=== PATIENT | female | born 1975 | race Caucasian/White ===

== ENCOUNTER 2022-01-28 20:02 | Emergency (ER) | payer OTHER, SELFPAY ==
[2022-01-28 20:23] VITALS: BP 128/71; PULSE 71; RESP 16; TEMP 36.9; O2SAT 100; BMI 24.3
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
[2022-01-28 21:02] VITALS: BP 102/68; PULSE 73; RESP 17; O2SAT 100
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
[2022-01-28 22:18] VITALS: BP 105/64; PULSE 72; RESP 16; O2SAT 100
== END 2022-01-28 22:19 | disposition home or self-care (01) ==
PROVIDERS: Emergency Provider Emergency Medicine
DX: S16.1XXA Strain of muscle, fascia and tendon at neck level, initial encounter (principal); V43.52XA Car driver injured in collision with other type car in traffic accident, initial encounter
CPT/HCPCS: 70450; 70486; 71045; 72125; 73030; 99284

== ENCOUNTER 2022-07-23 09:51 | Outpatient (CLI) | payer BC, SELFPAY ==
--- NOTE | 2022-07-23 10:03 | MM_ITS ---
WS: [id number] BILATERAL 3D TOMOSYNTHESIS DIGITAL SCREENING MAMMOGRAPHY WITH CAD CLINICAL INFORMATION: SCREENING HISTORY: Screening mammogram. No current complaints. COMPARISON: 2017 TECHNIQUE: Bilateral CC and MLO views. FINDINGS: The breasts are composed of heterogeneous fibroglandular density tissue, which can limit the detectio n of small underlying mass lesions. Slightly spiculated asymmetric density measuring 10 mm central RI GHT breast along the posterior nipple line. This is in the outer quadrant on the tomogram images near the 9:00 position. Recommend RIGHT diagnostic mammography and ultrasound for further evaluation. LEFT breast is unremarkable. IMPRESSION: MM/[place] [id number] BI-RADS: 0-Incomplete: Need additional imaging evaluation FOLLOW UP: Need Additional Imaging Recommend RIGHT diagnostic mammaography and ultrasound for further evaluation.
== END 2022-07-23 09:52 | disposition home or self-care (01) ==
LOC: RAD 09:58
PROVIDERS: Visit Provider Family Medicine
DX: Z12.31 Encounter for screening mammogram for malignant neoplasm of breast (principal)
CPT/HCPCS: 77063; 77067

== ENCOUNTER 2022-08-21 15:02 | Outpatient (CLI) | payer BC, SELFPAY ==
--- NOTE | 2022-08-21 15:08 | MM_ITS ---
WS: [id number] RIGHT 3D TOMOSYNTHESIS DIGITAL MAMMOGRAPHY WITH CAD CLINICAL INFORMATION: ABNORMAL MAMMO COMPARISON: July 23, 2022 TECHNIQUE: 3 views of the right breast were obtained. FINDINGS: The right breast is composed of heterogeneous fibroglandular density tissue, which can limit the dete ction of small underlying mass lesions. Slightly spiculated asymmetric density measuring 10 mm centra l RIGHT breast along the posterior nipple line is less prominent today but still identified. This loc alizes to the outer quadrant RIGHT breast on the tomogram. Ultrasound is pending. ULTRASOUND BREAST RIGHT TECHNIQUE: Ultrasound right breast focused area of concern. COMPARISON: Ultrasound 2017 CLINICAL INFORMATION: ABNORMAL MAMMO FINDINGS: Hypoechoic ovoid lesion at the 10:00 position 2 cm from the nipple measuring 1.1 x 0.8 x 0.4 cm. This likely corresponds to the mammographic abnormality and is indeterminant. Recommend further evaluatio n with ultrasound guided biopsy. No internal blood flow. There was an anechoic simple cyst in this location on the ultrasound 2017 at the 10:00 position 1 cm from the nipple. Today's lesion appears complex with internal debris or tissue. MM/[place] [id number] IMPRESSION: BI-RADS: 4-Suspicious Finding-Biopsy Should Be Considered FOLLOW UP: US Guided Biopsy Recommended
== END 2022-08-21 15:03 | disposition home or self-care (01) ==
LOC: RAD 15:04
PROVIDERS: Visit Provider Family Medicine
DX: R92.8 Other abnormal and inconclusive findings on diagnostic imaging of breast (principal); N63.11 Unspecified lump in the right breast, upper outer quadrant
CPT/HCPCS: 76642; 77061; G0279